=== PATIENT | male | born 1950 | race Caucasian/White ===

== ENCOUNTER 2018-03-16 11:05 | Emergency (ER) | payer MEDICARE ==
[2018-03-16 11:50] LABS: APPEARANCE,URINE Clear (CLEAR); BILIRUBIN,URINE Negative (NEGATIVE); COLOR,URINE Yellow (YELLOW); GLUCOSE, URINE (UA) Negative (NEGATIVE); KETONES,URINE Negative (NEGATIVE); LEUKOCYTE ESTERASE ,URINE Negative (NEGATIVE); NITRATE,URINE Negative (NEGATIVE); OCCULT BLOOD,URINE Moderate (NEGATIVE); PROTEIN,URINE Negative (NEGATIVE); UROBILINOGEN,URINE 0.2 mg/dL (0.2-1.0)
[2018-03-16 11:57] LABS: CREATININE 1.2 mg/dL (0.5-1.5); POTASSIUM 4.5 mmol/L (3.5-5.1)
[2018-03-16 12:20] LABS: BACTERIA,URINE None Seen /HPF (None Seen); SQUAMOUS EPITHELIAL CELL,UR 0-2 /HPF (0-2); WBC,URINE None Seen /HPF (0-1)
== END 2018-03-16 12:24 | disposition home or self-care (01) ==
LOC: EDH 11:05
DX: N23 Unspecified renal colic (principal); R11.10 Vomiting, unspecified; Z87.442 Personal history of urinary calculi
CPT/HCPCS: 36415; 74176; 80048; 81001

== ENCOUNTER 2018-04-13 08:55 | Emergency (ER) | payer MEDICARE ==
[2018-04-13] MEDS ORDERED: TETRACAINE HCL 0.5% 4 ML OPHTH SOLN ONE (09:27)
[2018-04-13] MEDS ORDERED: NA BORATE/BORIC AC/H2O/NACL 120 ML OPHTH IRRIG SOLN ONE (09:28)
[2018-04-13] MEDS ORDERED: FLUORESCEIN SODIUM 1 STRIP STRIP ONE (09:28)
== END 2018-04-13 09:48 | disposition home or self-care (01) ==
LOC: EDH 08:55
DX: S05.01XA Injury of conjunctiva and corneal abrasion without foreign body, right eye, initial encounter (principal); H01.003 Unspecified blepharitis right eye, unspecified eyelid; X58.XXXA Exposure to other specified factors, initial encounter; Y93.89 Activity, other specified; Y92.89 Other specified places as the place of occurrence of the external cause; Y99.8 Other external cause status

== ENCOUNTER 2019-07-01 09:14 | Emergency (ER) | payer MEDICARE ==
[2019-07-01] MEDS ORDERED: SULFAMETHOX-TMP DS 800/160 TAB ONE (10:05)
== END 2019-07-01 10:39 | disposition home or self-care (01) ==
LOC: EDH 09:14
DX: L02.411 Cutaneous abscess of right axilla (principal); I10 Essential (primary) hypertension

== ENCOUNTER 2019-07-10 11:27 | Emergency (ER) | payer MEDICARE | END 2019-07-10 12:30 | disposition home or self-care (01) | LOC: EDH 11:27 | DX: L02.411 Cutaneous abscess of right axilla (principal); I10 Essential (primary) hypertension ==

== ENCOUNTER 2022-08-01 16:32 | Emergency (ER) | payer MEDICARE ==
[~2022-08-01] VITALS: Ht 182.9 cm; Wt 90.7 kg
[2022-08-01 16:37] VITALS: BP 153/97
== END 2022-08-01 20:01 | disposition left against medical advice (07) ==
LOC: EDH 16:32
DX: H57.9 Unspecified disorder of eye and adnexa (principal); Z53.21 Procedure and treatment not carried out due to patient leaving prior to being seen by health care provider
CPT/HCPCS: 84484; 99281